=== PATIENT | male | born 1950 ===

== ENCOUNTER → 2018-02-04 | Outpatient (RCR) | payer OTHER | LOC: OT 01-16 14:19 | PROVIDERS: ATTEND Specialist | DX: S52.131D Displaced fracture of neck of right radius, subsequent encounter for closed fracture with routine healing (principal); M25.521 Pain in right elbow; M25.621 Stiffness of right elbow, not elsewhere classified; R53.1 Weakness | CPT/HCPCS: 97010 ×7; 97110 ×8; 97139; 97165; 97530 ×2; G8987 ×2; G8988 ×2 ==

== ENCOUNTER 2018-02-12 15:45 | Outpatient (RCR) | payer OTHER | END 2018-03-07 | LOC: OT 15:45 | PROVIDERS: ATTEND Specialist | DX: S52.131D Displaced fracture of neck of right radius, subsequent encounter for closed fracture with routine healing (principal); M25.521 Pain in right elbow; M25.621 Stiffness of right elbow, not elsewhere classified; R53.1 Weakness | CPT/HCPCS: 97010 ×4; 97110 ×4; 97139; 97530 ×2; G8988; G8989 ==